=== PATIENT | male | born 1990 | race American Indian/Alaskan Native ===

== ENCOUNTER → 2019-01-27 | Emergency (ER) | payer SELFPAY ==
[~2019-01-27] MED LIST: D5W/0.45% NACL 1,000 ML IV SCH; DEXTROSE 50% IN WATER (25GM) 50 ML SYRINGE IV PRN; HALOPERIDOL LACTATE 5 MG/1 ML INJ IM PRN; LIDOCAINE 2%/EPINEPHRINE 1:100,000 VIAL (20 ML) INFILTRATI ONE; LORazepam 2 MG/ML VIAL IM PRN; SODIUM CHLORIDE 0.9% 1000 ML 1,000 ML IV ONE; SODIUM CHLORIDE 0.9% IRR 500 ML BOTTLE IR ONE; TETANUS,DIPH,PERTUSS(ACELL) VACCINE 0.5 ML SYRINGE IM ONE; WATER FOR INJ Sterile (PF) 10 ML ONE; ZIPRASIDONE MESYLATE 20 MG VIAL IM ONE
--- NOTE | 2019-01-27 15:47 | Emergency Department Report ---
<AMINTA HAMILTON - Last Filed: 01/27/19 17:18> ED General Adult HPI - General Chief complaint: Medical Clearance Stated complaint: POSS OVERDOSE Time Seen by Provider: 01/27/19 15:38 Source: police, EMS, RN notes reviewed Mode of arrival: Stretcher Limitations: Altered Mental Status - History of Present Illness Initial comments: Verbal report received from EMS and police department. EMS documentation not available at time of chart dictation This is a 28-year-old gentleman who is not known to this provider previously. He is brought to the hospital by police and EMS for medical clearance. The patient is reportedly under arrest. Apparently, he got into an altercation with police department. He has a left forehead laceration. He also received a taser in the field. EMS reports that the patient was quite violent and combative in the field, the patient would not allow for medical intervention. They reported that he had a finger stick of 63, but they were not able to intervene as the patient was violent and combative. In the emergency room, the patient is awake, but not answering questions, and physically combative. He does not respond to verbal de-escalation techniques or show of force. There is concern that he may have overdosed on something. There is concern that there may be polysubstance overdose. The patient required physical restraints, currently, Police Department have him in handcuffs, and he required chemical medication with haloperidol, Ativan and Geodon to allow for emergency medicine workup. I attempted to engage the patient in it open and discussion, to elicit history, to determine nature of events, however, he would not speak to me, or refused to speak to me. He does not demonstrate decision-making capacity at this time. -: This afternoon Quality: other Consistency: other Improves with: other Worsens with: other - Related Data Allergies Allergy/AdvReac Type Severity Reaction Status Date / Time No Known Allergies Allergy Verified 01/27/19 15:54 ED Review of Systems Comment: Unobtainable due to pts medical conditions ED Physical Exam - General Limitations: Other (the patient will not speak to myself. Intermittently he is noted to be flailing 4 extremities and cursing) General appearance: anxious - Head Head exam: Present: normocephalic, other (there is a left-sided forehead laceration) - Eye Eye exam: Present: normal appearance, PERRL, EOMI - ENT ENT exam: Present: normal exam, normal orophraynx, mucous membranes moist, TM's normal bilaterally, normal external ear exam - Neck Neck exam: Present: normal inspection, full ROM. Absent: tenderness, meningismus - Respiratory Respiratory exam: Present: normal lung sounds bilaterally. Absent: respiratory distress - Cardiovascular Cardiovascular Exam: Present: regular rate, normal rhythm, normal heart sounds. Absent: bradycardia, tachycardia, irregular rhythm, systolic murmur, diastolic murmur, rubs, gallop - GI/Abdominal GI/Abdominal exam: Present: soft, normal bowel sounds. Absent: distended, tenderness, guarding, rebound, rigid, pulsatile mass - exam: Present: normal inspection External exam: Present: normal external exam - Extremities Exam Extremities exam: Present: normal inspection, full ROM, other (2+ pulses noted in the bilateral upper, lower extremities. There is no long bone tenderness. Musculoskeletal compartments are soft. The pelvis is stable.). Absent: tenderness, pedal edema, joint swelling, calf tenderness - Back Exam Back exam: Present: normal inspection, full ROM. Absent: tenderness, CVA tenderness (R), CVA tenderness (L), paraspinal tenderness, vertebral tenderness - Neurological Exam Neurological exam: Present: altered, other (the patient does not have facial droop. He is moving 4 extremities spontaneously. He is cursing and ER staff. He will not participate in a detailed neurologic examination) - Psychiatric Psychiatric exam: Present: agitated - Skin Skin exam: Present: warm ED Course - Reevaluation(s) Reevaluation #1: 01/27/19 16:41 Differential diagnosis, including but not limited to: Intracranial injury, facial injury, cervical spine injury, facial laceration Overdose of uncertain intent Assessment and plan: 28-year-old gentleman who is physically combative, brought to the hospital by emergency medical services and police department for medical clearance for incarceration. The patient will not clarify why he allegedly took the overdose, he is physically violent and combative, and he does not demonstrate decision-making capacity. He requires multiple emergent studies, including CT scan brain, facial bones, cervical spine, multiple laboratory studies to exclude toxicologic ingestion, and cardiac monitoring and observation. As he does not demonstrate decision-making capacity at this time and has overdosed, he is placed on a psychiatric hold and a 1013 is executed. Laboratory studies, imaging studies pending at this time, tetanus vaccination ordered, IV fluids ordered. ED Medical Decision Making - Radiology Data Radiology results: pending ED Disposition Clinical Impression: Pulmonary embolism Disposition: [id number] OP ADMIT IP TO THIS HOSP Condition: Stable Referrals: PRIMARY CARE, [Primary Care Provider] - 3-5 Days <YELENA BARTLETT - Last Filed: 03/05/19 21:25> ED Review of Systems ROS: Stated complaint: POSS OVERDOSE Other details as noted in HPI - Laceration /Wound Repair Face Wound Location: face Wound Length (cm): 2 Wound's Depth, Shape: linear Wound Explored: clean Irrigated w/ Saline (ccs): 20 Betadine Prep?: Yes Anesthesia: Lidocaine w/ Epi Volume Anesthetic (ccs): 2 Wound Repaired With: sutures Suture Size/Type: 5:0, proline Number of Sutures: 6 (continuous ) Layer Closure?: No Sterile Dressing Applied?: Yes Progress: Minimal bleeding. Pt tolerated procedure well. Critical care attestation.: If time is entered above; I have spent that time in minutes in the direct care of this critically ill patient, excluding procedure time. ED Disposition Is pt being admited?: Yes
== END | disposition admitted as inpatient to this hospital (09) ==
LOC: ED 15:29
DX: S01.81XA Laceration without foreign body of other part of head, initial encounter (principal); Y04.8XXA Assault by other bodily force, initial encounter; Y93.89 Activity, other specified; Y92.89 Other specified places as the place of occurrence of the external cause; Y99.8 Other external cause status
CPT/HCPCS: 90471; 90715; 96372; 96374; J1630; J2060; J3486; J7030